=== PATIENT | male | born 1950 | race Caucasian/White ===

== ENCOUNTER → 2019-01-02 | Outpatient (CLI) | payer MEDICARE, OTHER ==
[~2019-01-02] MED LIST: GABEPENTIN; LEVO750T6 PO; LOVASTATIN; TYLENOL#4
--- NOTE | 2019-01-02 17:19 | Diagnostic Imaging Report ---
INDICATION: Right foot pain. FINDINGS: Three views of the right foot show an oblique fracture of the distal shaft of the third metatarsal. There is less than 5 mm of displacement. Joints are not involved. No other acute abnormality is seen. IMPRESSION: There is a mildly displaced oblique fracture of the distal shaft of the right third metatarsal. Dictated by: Dictated on workstation # [id number]
== END ==
LOC: RAD 15:37
DX: S92.331A Displaced fracture of third metatarsal bone, right foot, initial encounter for closed fracture (principal)
CPT/HCPCS: 73630

== ENCOUNTER 2021-08-23 13:30 | Emergency (ER) | payer MEDICARE, OTHER ==
[~2021-08-23] VITALS: Ht 180 cm; Wt 71.0 kg
[2021-08-23 14:17] LABS: BASOPHILS % (AUTO) 0 % (0-10); EOSINOPHILS % (AUTO) 0 % (0-10); HEMATOCRIT 48 % (40-54); HEMOGLOBIN 16.6 g/dL (13.3-17.7); LYMPHOCYTES # (AUTO) 1.6 10^3/uL (1.0-4.0); LYMPHOCYTES % (AUTO) 19 % (12-44); MEAN CORPUSCULAR HEMOGLOBIN 32 pg (25-34); MEAN CORPUSCULAR HGB CONC 34 g/dL (32-36); MEAN CORPUSCULAR VOLUME 94 fL (80-99); MEAN PLATELET VOLUME 10.3 fL (9.0-12.2); MONOCYTES # (AUTO) 0.9 10^3/uL (0.0-1.0); MONOCYTES % (AUTO) 11 % (0-12); NEUTROPHILS # (AUTO) 5.9 10^3/uL (1.8-7.8); NEUTROPHILS % (AUTO) 69 % (42-75); PLATELET COUNT 200 10^3/uL (130-400); WHITE BLOOD COUNT 8.5 10^3/uL (4.3-11.0)
[2021-08-23 14:27] LABS: FIBRIN DEGRADATION PRODUCTS 0.68 UG/ML (0.00-0.49); INR 0.9 (0.8-1.4)
--- NOTE | 2021-08-23 14:35 | ED Respiratory ---
General Chief Complaint: Respiratory Problems Stated Complaint: SOB Nursing Triage Note: PT AMB TO ER WITH C/O SOB FOR 2 DAYS AND COUGHING UP SLIGHTLY GREEN TINGED MUCOUS. PT HAS NOT HAD COVID BUT HAS BEEN AROUND SICK NEIGHBORS Source: patient Exam Limitations: no limitations History of Present Illness Date Seen by Provider: Aug 23, 2021 Time Seen by Provider: 14:23 Initial Comments This is a well-appearing 70-year-old male presented to the ER with complaints of cough and shortness of breath for the past 2 days. Allergies and Home Medications Allergies Coded Allergies: No Known Drug Allergies (Unverified , 08/23/21) Patient Home Medication List Azithromycin (Azithromycin) 250 Mg Tablet, 250 MG PO DAILY Prescribed by: MERT SORENSEN on 08/23/21 152 Levofloxacin (Levaquin) 750 Mg Tablet, 750 MG PO DAILY Prescribed by: MARISA LAINEZ on 10/02/141815 Prednisone (Prednisone) 20 Mg Tab, 50 MG PO DAILY Prescribed by: MERT SORENSEN on 08/23/21 1525 [Gabepentin] , (Reported) Entered as Reported by: LILLY PABLO on 10/02/141747 [Lovastatin] , (Reported) Entered as Reported by: LILLY PABLO on 10/02/141747 [Tylenol#4] , (Reported) Entered as Reported by: LILLY PABLO on 10/02/141746 Past Rfyqglu-Kavajh-Ongxvo Hx Patient Social History Tobacco Use?: Yes Tobacco type used: Cigarettes Smoking Status: Heavy Tobacco Smoker Substance use?: No Alcohol Use?: No Pt feels they are or have been: No Immunizations Up To Date Influenza Vaccine Up-to-Date: Yes; Up-to-Date Seasonal Allergies Seasonal Allergies: No Past Medical History Headaches /Migraines, Multiple Sclerosis Reproductive Disorders: No Adverse Reaction/Blood Tranf: No Physical Exam Vital Signs - First Documented 08/23/21 13:40 Temp 36.1 Pulse 107 Resp 32 B/P (MAP) 134/91 (105) Pulse Ox 96 O2 Delivery Nasal Cannula O2 Flow Rate 1.50 Capillary Refill : Less Than 3 Seconds Height: 5'11" Weight: 165lbs. oz. [id number]; 21.00 BMI Method:Stated Progress/Results/Core Measures Suspected Sepsis SIRS Temperature: Pulse: 107 Respiratory Rate: 32 Laboratory Tests 08/23/21 13:48: White Blood Count 8.5 Blood Pressure 134 /91 Mean: 105 Laboratory Tests 08/23/21 13:48: Creatinine 0.72, INR Comment 0.9, Platelet Count 200, Total Bilirubin 0.3 Results/Orders Lab Results Laboratory Tests Test 08/23/21 13:48 08/23/21 13:55 08/23/21 14:40 Range/Units White Blood Count 8.5 4.3-11.0 10^3/uL Red Blood Count 5.13 4.30-5.52 10^6/uL Hemoglobin 16.6 13.3-17.7 g/dL Hematocrit 48 40-54 % Mean Corpuscular Volume 94 80-99 fL Mean Corpuscular Hemoglobin 32 25-34 pg Mean Corpuscular Hemoglobin Concent 34 32-36 g/dL Red Cell Distribution Width 13.6 10.0-14.5 % Platelet Count 200 130-400 10^3/uL Mean Platelet Volume 10.3 9.0-12.2 fL Immature Granulocyte % (Auto) 1 % Neutrophils (%) (Auto) 69 42-75 % Lymphocytes (%) (Auto) 19 12-44 % Monocytes (%) (Auto) 11 0-12 % Eosinophils (%) (Auto) 0 0-10 % Basophils (%) (Auto) 0 0-10 % Neutrophils # (Auto) 5.9 1.8-7.8 10^3/uL Lymphocytes # (Auto) 1.6 1.0-4.0 10^3/uL Monocytes # (Auto) 0.9 0.0-1.0 10^3/uL Eosinophils # (Auto) 0.0 0.0-0.3 10^3/uL Basophils # (Auto) 0.0 0.0-0.1 10^3/uL Immature Granulocyte # (Auto) 0.0 0.0-0.1 10^3/uL Prothrombin Time 12.0 L 12.2-14.7 SEC INR Comment 0.9 0.8-1.4 Activated Partial Thromboplast Time 36 H 24-35 SEC D-Dimer 0.68 H 0.00-0.49 UG/ML Sodium Level 131 L 135-145 MMOL/L Potassium Level 4.4 3.6-5.0 MMOL/L Chloride Level 95 L 98-107 MMOL/L Carbon Dioxide Level 22 21-32 MMOL/L Anion Gap 14 5-14 MMOL/L Blood Urea Nitrogen 5 L 7-18 MG/DL Creatinine 0.72 0.60-1.30 MG/DL Estimat Glomerular Filtration Rate 108 BUN/Creatinine Ratio 7 Glucose Level 82 70-105 MG/DL Calcium Level 8.6 8.5-10.1 MG/DL Corrected Calcium 9.4 8.5-10.1 MG/DL Magnesium Level 1.9 1.6-2.4 MG/DL Total Bilirubin 0.3 0.1-1.0 MG/DL Aspartate Amino Transf (AST/SGOT) 39 H 5-34 U/L Alanine Aminotransferase (ALT/SGPT) 26 0-55 U/L Alkaline Phosphatase 77 40-136 U/L Myoglobin 24.1 10.0-92.0 NG/ML Troponin I < 0.028 <0.028 NG/ML B-Type Natriuretic Peptide 30.4 <100.0 PG/ML Total Protein 7.3 6.4-8.2 GM/DL Albumin 3.0 L 3.2-4.5 GM/DL Influenza Type A (RT-PCR) Not Detected Not Detecte Influenza Type B (RT-PCR) Not Detected Not Detecte SARS-CoV-2 RNA (RT-PCR) Not Detected Not Detecte Urine Color YELLOW Urine Clarity CLEAR Urine pH 6.5 5-9 Urine Specific [place] 1.020 1.016-1.022 Urine Protein NEGATIVE NEGATIVE Urine Glucose (UA) NEGATIVE NEGATIVE Urine Ketones TRACE H NEGATIVE Urine Nitrite NEGATIVE NEGATIVE Urine Bilirubin NEGATIVE NEGATIVE Urine Urobilinogen 0.2 < = 1.0 MG/DL Urine Leukocyte Esterase NEGATIVE NEGATIVE Urine RBC (Auto) NEGATIVE NEGATIVE Urine RBC NONE /HPF Urine WBC 0-2 /HPF Urine Crystals NONE /LPF Urine Bacteria NEGATIVE /HPF Urine Casts NONE /LPF Urine Mucus SMALL H /LPF Urine Culture Indicated NO My Orders Orders - MERT SORENSEN APRN Covid 19 Inhouse Test (08/23/21 14:09) Cbc With Automated Diff (08/23/21 14:09) Comprehensive Metabolic Panel (08/23/21 14:09) Sputum Culture (08/23/21 14:09) Urinalysis (08/23/21 14:09) Urine Culture (08/23/21 14:09) Protime With Inr (08/23/21 14:09) Partial Thromboplastin Time (08/23/21 14:09) Chest 1 View, Ap/Pa Only (08/23/21 14:09) Ed Iv/Invasive Line Start (08/23/21 14:09) Troponin I [place] (08/23/21 14:09) O2 (08/23/21 14:09) Remove Rings In Anticipation O (08/23/21 14:09) Magnesium (08/23/21 14:09) Myoglobin Serum (08/23/21 14:09) Monitor-Rhythm Ecg Trace Only (08/23/21 14:09) Bnp [place] (08/23/21 14:09) Fibrin Degradation Products (08/23/21 14:09) Influenza A And B By Pcr (08/23/21 13:55) Azithromycin Tablet (Zithromax Tablet) (08/23/21 15:30) Prednisone Tablet (Deltasone Tablet) (08/23/21 15:30) Medications Given in ED Current Medications Medications Dose Ordered Sig/Sidney Route Start Time Stop Time Status Last Admin Dose Admin Azithromycin 500 mg ONCE ONCE PO 08/23/21 15:30 08/23/21 15:31 DC 08/23/21 15:41 500 MG Prednisone 50 mg ONCE ONCE PO 08/23/21 15:30 08/23/21 15:31 DC 08/23/21 15:41 50 MG Vital Signs/I&O 08/23/21 08/23/21 08/23/21 13:40 13:43 14:19 Temp 36.1 Pulse 107 Resp 32 B/P (MAP) 134/91 (105) Pulse Ox 96 94 O2 Delivery Nasal Cannula Nasal Cannula Nasal Cannula O2 Flow Rate 1.50 3.00 1.50 1.50 Capillary Refill : Less Than 3 Seconds Blood Pressure Mean: 105 Departure Impression Primary Impression: Community acquired pneumonia Disposition: 01 HOME, SELF-CARE Condition: Stable Departure-Patient Inst. Decision time for Depature: 15:24 Referrals: HERMELINDO SINGH MD (PCP/Family) Primary Care Physician Add. Discharge Instructions: Plan: 1. Use your Albuterol inhaler 2 puffs every 4 hours as needed for shortness of breath. 2. Take Steroids daily with food as directed. Take antibiotics daily as directed and complete full course of each. 3. Drink plenty of fluids. 4. Wear your oxygen 2 liters by mouth daily for the next week while you are taking your antibiotics and steroids. 5. DO NOT SMOKE WITH OR NEAR OXYGEN, WILL BLOW UP CONCENTRATOR AND CAUSE SEVERE INJURY OR . 6. Return for any new, concerning, or worsening symptoms. All discharge instructions reviewed with patient and/or family. Voiced understanding. Scripts Azithromycin (Azithromycin) 250 Mg Tablet 250 MG PO DAILY, #4 TAB 0 Refills Prov: MERT SORENSEN SNELLER HAND 08/23/21 Prednisone (Prednisone) 20 Mg Tab 50 MG PO DAILY, #5 TAB 0 Refills Prov: MERT SORENSEN SNELLER HAND 08/23/21 MERT SORENSEN SNELLER HAND Aug 23, 2021 14:35
[2021-08-23 14:44] LABS: ALANINE AMINOTRANSFERASE 26 U/L (0-55); ALKALINE PHOSPHATASE 77 U/L (40-136); BILIRUBIN,TOTAL 0.3 MG/DL (0.1-1.0); BUN/CREATININE RATIO 7; CALCIUM 8.6 MG/DL (8.5-10.1); CARBON DIOXIDE 22 MMOL/L (21-32); CHLORIDE 95 MMOL/L (98-107); CREATININE SERUM 0.72 MG/DL (0.60-1.30); GFR ESTIMATED 108; GLUCOSE 82 MG/DL (70-105); MAGNESIUM 1.9 MG/DL (1.6-2.4); POTASSIUM 4.4 MMOL/L (3.6-5.0); SODIUM 131 MMOL/L (135-145); TOTAL PROTEIN 7.3 GM/DL (6.4-8.2)
[2021-08-23] MEDS ORDERED: NS 100 ML (IVPB) BAG IV ONE (15:00)
[2021-08-23] MEDS ORDERED: IOHEXOL 350 MG/ML 100 ML (OMNIPAQUE 350) VIAL IV ONE (15:00)
[2021-08-23] MEDS ORDERED: HOLD METFORMIN - RECEIVED CONTRAST 20 ML VIAL IV SCH (15:00)
[2021-08-23 15:06] LABS: BILIRUBIN,URINE NEGATIVE (NEGATIVE); CLARITY,URINE CLEAR; COLOR,URINE YELLOW; GLUCOSE, URINE (UA) NEGATIVE (NEGATIVE); KETONES,URINE TRACE (NEGATIVE); LEUKOCYTE ESTERASE ,URINE NEGATIVE (NEGATIVE); NITRITE,URINE NEGATIVE (NEGATIVE); PH,URINE 6.5 (5-9); PROTEIN,URINE NEGATIVE (NEGATIVE)
[2021-08-23 15:21] LABS: BACTERIA,URINE NEGATIVE /HPF; WBC,URINE 0-2 /HPF
[2021-08-23] MEDS ORDERED: PRD20T PO (15:25)
[2021-08-23] MEDS ORDERED: AZIT250T12 PO (15:26)
[2021-08-23] MEDS ORDERED: AZITHROMYCIN 250 MG TAB (ZITHROMAX) PO ONE (15:30)
[2021-08-23] MEDS ORDERED: predniSONE 20 MG TAB PO ONE (15:30)
--- NOTE | 2021-08-23 15:42 | Diagnostic Imaging Report ---
CLINICAL INDICATION: Patient complains of shortness breath for two days and coughing up slightly green-tinged mucus. Patient has not had COVID, but has been around sick neighbors. EXAM: Portable chest x-ray upright view. COMPARISONS: Chest x-ray dated 11/23/2014. FINDINGS: There is interval progression of diffuse bilateral lung infiltrates throughout both lungs with mild sparing of the lung bases. There is no pleural effusion or pneumothorax. Pulmonary vasculature and cardiac silhouette are within normal limits. There are degenerative spurs involving the thoracic spine. IMPRESSION: There is interval progression of diffuse bilateral lung infiltrates concerning for pneumonia. Dictated by: Dictated on workstation # [id number]
[2021-08-23 16:10] VITALS: BP 123/83
== END 2021-08-23 16:12 | disposition home or self-care (01) ==
LOC: EDUNIT# 13:30 → ER 13:32
DX: J18.9 Pneumonia, unspecified organism (principal); F17.210 Nicotine dependence, cigarettes, uncomplicated; Z20.822 Contact with and (suspected) exposure to COVID-19
CPT/HCPCS: 36415; 71045; 80053; 81000; 83735; 83874; 83880; 84484; 85025; 85379; 85610; 85730; 87070; 87077; 87088; 87205; 87636; 93005; 93041